=== PATIENT | female | born 1990 | race Caucasian/White ===

== ENCOUNTER 2016-05-22 21:01 | Emergency (ER) | payer OTHER ==
[2016-05-22 21:07] VITALS: BMI 23.0
[2016-05-22] MEDS ORDERED: NS 2,000 ML IV ONE (21:48)
[2016-05-22] MEDS ORDERED: SODIUM CHLORIDE 0.9% 10 ML FLUSH FLUSH PRN (21:48)
[2016-05-22] MEDS ORDERED: ONDANSETRON HCL 4 MG/2 ML VIAL IV ONE (21:48)
[2016-05-22] MEDS ORDERED: MORPHINE 4 MG/ML INJECTION IV ONE (21:48)
--- NOTE | 2016-05-22 21:50 | EDPRACDOC ---
- General Information Chief Complaint: Abdominal Pain Stated Complaint: BLOOD IN STOOL (CROHN'S DISEASE) Time Seen by Provider: 05/22/16 21:41 Information Source: Patient Mode Of Arrival: Car Home Medications: Home Medications Mesalamine [Lialda] 2.4 gm PO .QAM W/BREAKFAST 08/23/14 Ondansetron HCl [Zofran] 4 mg PO Q6H PRN #15 tab 08/23/14 Levofloxacin [Levaquin] 750 mg PO DAILY #7 tab 05/22/16 Prednisone [Deltasone, Orasone] 20 mg PO DAILY #20 tab 05/22/16 Promethazine [Phenergan] 25 mg PO Q4-6H PRN #15 tab 05/22/16 Allergies/Adverse Reactions: Allergies Allergy/AdvReac Type Severity Reaction Status Date / Time No Known Allergies Allergy Verified 05/22/16 21:07 - History of Present Illness Onset: TODAY HPI: Pt c/o diffuse abd pain, n/v/d x 2 days. C/o chills. Denies cough, congestion, cp, sob, changes in bladder, rash. Pt states hx Crohn disease but is currently not on medication. C/o bloody diarrhea about 10-20 episodes in 24 hours. Pain Location: Reports: Diffuse Pain Context: Reports: Spontaneous Pain Severity: Moderate Pain Quality: Reports: Aching, Cramping Pain Radiation: Reports: No Radiation Last Menstrual Period: MARCH : No Adult Abdominal History: Reports: Similar Pain (dx) (Crohn) Modifying Factors: improves with: Nothing Female Associated Signs & Symptoms: Reports: Nausea, Vomiting, Diarrhea, Chills Oral Intake: Decreased Urinary Output: Normal ED Past Medical History - History Reviewed Yes Nurses notes reviewed and agree except as marked - Social Medical History Smoking Status: Never smoker ETOH: None Substance Abuse: None EDM Review of Systems - Review of Systems Constitutional: No Symptoms Reported. negative: Fever, Chills, Weakness, Fatigue, Loss of Appetite Ears: No Symptoms Reported. negative: Pain, Hearing Loss, Drainage, Ear Pulling Throat: No Symptoms Reported. negative: Pain, Swelling Nose: No Symptoms Reported. negative: Congestion, Bleeding, Discharge, Injection, Swelling, Deformity, Ecchymosis, Tender, Abrasion, Laceration Mouth: No Symptoms Reported. negative: Pain, Drooling Respiratory: No Symptoms Reported. negative: Cough, Brassy Cough, Barky Cough, Shortness of Breath, Wheezing, Hemoptysis Cardiovascular: No Symptoms Reported. negative: Chest Pain, Palpitations, Syncope, Edema, Orthopnea, PND, Skin Mottling, Cyanosis Gastrointestinal: Diarrhea, Nausea, Pain, Vomiting Genitourinary: No Symptoms Reported. negative: Dysuria, Hematuria, Frequency, Discharge, Bleeding, Testicular Pain, Neurological: No Symptoms Reported. negative: Headache, Dizziness, Seizure, Numbness, Weakness, Speech Difficulty, Gait Difficulty Musculoskeletal: No Symptoms Reported. negative: Neck, Chestwall, Ribs, Back, Shoulder, Arm, Elbow, Forearm, Wrist, Hand, Pelvis, Hip, Femur, Knee, Leg, Ankle , Foot Integumentary: No Symptoms Reported. negative: Itching, Rash, Bruising, Wound Allergic/Immunologic: No Symptoms Reported. negative: Hives, Itching Hematologic: No Symptoms Reported. negative: Lymphadenopathy, Easy Bruising, Easy Bleeding Psychiatric: No Symptoms Reported. negative: Anxiety, Depression, Hallucinations, Insomnia, Suicidal - Physical Exam Constitutional: Alert Oriented to: Time, Person, Place Last recorded Vital Signs: Last Vital Signs Temp 99.1 F 05/22/16 23:36 Pulse 98 05/22/16 23:36 Resp 18 05/22/16 23:36 BP 87/46 L 05/22/16 23:36 Pulse Ox 96 05/22/16 23:36 Oxygen Pulse Oxygen Saturation 96 O2 Device Room Air Oxygen Flow Rate Fraction of Inspired Oxygen ( FIO2) - HEENT Head: Normal ( normocephalic) Eye Exam: Normal (PERRL, EOMI, Sclera white) Oropharynx: Normal (Pharynx:Moist without exudate,Gums-no swelling) Tympanic Membrane: Normal ENT EAC: Normal Nose: No Symptoms Reported (septum midline) Neck: Normal (FROM, trachea at midline) - Respiratory/Cardiovascular Respiratory: Normal - CTA (BBS clear to auscultation without adventitious sounds ) Cardiovascular: Tachycardia - GI Auscultation: Normal (NABS) Palpation: Normal (Soft,No rebound or guarding, non distended) Tenderness: Diffuse, Mild Rectal Exam: Heme positive stool, Hemorrhoids Stool: Loose - Musculoskeletal Back: Normal (Non-Tender) Extremities: Normal (Normal tone, Pulses 2+ No cyanosis or edema, FROM) - Integumentary Skin: Normal, Warm, Dry Lymphatics: Normal (no adenopathy) - Neurologic Memory Impaired: Normal Motor Function: Normal (Normal tone, Pulses 2+ No cyanosis or edema, FROM) Mood Description: Normal Perception: Normal - Differential Diagnosis Diverticulitis, Gastroenteritis, Inflammatory Bowel Dz, Pancreatitis, UTI - Results 05/22/16 22:14 05/22/16 22:14 WBC 12.5 xk/uL (3.8-10.8) H 05/22/16 22:14 RBC 4.65 xM/uL (4.20-5.40) 05/22/16 22:14 Hgb 10.6 g/dL (12.0-16.0) L 05/22/16 22:14 Hct 32.9 % (36-47) L 05/22/16 22:14 MCV 71 fL (81-99) L 05/22/16 22:14 MCH 22.8 pg (27-32) L 05/22/16 22:14 MCHC 32.2 g/dl (33-36) L 05/22/16 22:14 RDW 17.2 % (11.5-14.5) H 05/22/16 22:14 Plt Count 292 xk/uL (130-400) 05/22/16 22:14 MPV 7.4 fL (7.4-10.4) 05/22/16 22:14 Neut % (Auto) 89.4 % (45-76) H 05/22/16 22:14 Lymph % (Auto) 4.9 % (17-44) L 05/22/16 22:14 [place] % (Auto) 5.4 % (3-10) 05/22/16 22:14 Eos % (Auto) 0.1 % (0-5) 05/22/16 22:14 Baso % (Auto) 0.2 % (0-2) 05/22/16 22:14 Absolute Neuts (auto) 11.13 xk/uL (1.7-8.2) H 05/22/16 22:14 Absolute Lymphs (auto) 0.50 xk/uL (0.65-4.75) L 05/22/16 22:14 Platelet Estimate Norm (NORMAL) 05/22/16 22:14 RBC Morphology 1+ hypo 1+ micro 1+ poik 1+ polychrom 05/22/16 22:14 RBC Morphology 1+ hypo 1+ micro 1+ poik 1+ polychrom 05/22/16 22:14 RBC Morphology 1+ hypo 1+ micro 1+ poik 1+ polychrom 05/22/16 22:14 RBC Morphology 1+ hypo 1+ micro 1+ poik 1+ polychrom 05/22/16 22:14 Sodium 136 mEq/L (137-146) L 05/22/16 22:14 Potassium 3.3 mEq/L (3.5-5.1) L 05/22/16 22:14 Chloride 100 mEq/L (98-107) 05/22/16 22:14 Carbon Dioxide 25 mMOL/L (22-33) 05/22/16 22:14 Anion Gap 14 mEq/L (8-16) 05/22/16 22:14 BUN 7 MG/DL (7-17) 05/22/16 22:14 Creatinine 0.70 MG/DL (0.52-1.04) 05/22/16 22:14 Estimated GFR (MDRD) > 60 mL/min (>=60) 05/22/16 22:14 Glucose 94 MG/DL (70-99) 05/22/16 22:14 Calculated Osmolality 260 MOs/Kg (270-290) L 05/22/16 22:14 Calcium 9.0 MG/DL (8.4-10.2) 05/22/16 22:14 Corrected Calcium 9.3 MG/DL (8.4-10.2) 05/22/16 22:14 Total Bilirubin 0.4 MG/DL (0.2-1.3) 05/22/16 22:14 AST 27 IU/L (14-36) 05/22/16 22:14 ALT 34 IU/L (9-52) 05/22/16 22:14 Alkaline Phosphatase 83 IU/L (38-126) 05/22/16 22:14 Total Protein 7.0 G/DL (6.3-8.2) 05/22/16 22:14 Albumin 3.7 G/DL (3.5-5.0) 05/22/16 22:14 Lipase 118 U/L (23-300) 05/22/16 22:14 Urine Color Yellow 05/22/16 22:05 Urine Clarity Clear 05/22/16 22:05 Urine pH 6.0 (5.0-8.0) 05/22/16 22:05 Ur Specific [place] 1.015 (1.003-1.035) 05/22/16 22:05 Urine Protein Neg (NEG/TRACE) 05/22/16 22:05 Urine Glucose (UA) Neg (NEGATIVE) 05/22/16 22:05 Urine Ketones Neg (NEGATIVE) 05/22/16 22:05 Urine Occult Blood Neg (NEG/TRACE) 05/22/16 22:05 Urine Nitrite Neg (NEGATIVE) 05/22/16 22:05 Urine Bilirubin Neg (NEGATIVE) 05/22/16 22:05 Urine Urobilinogen <2.0 MG/DL (0-1) 05/22/16 22:05 Ur Leukocyte Esterase Trace (NEGATIVE) H 05/22/16 22:05 Urine RBC 0-2 (0-5) 05/22/16 22:05 Urine WBC 0-2 (0-5) 05/22/16 22:05 Ur Epithelial Cells 2+ 05/22/16 22:05 Urine Mucus Occ (NEG/OCC) 05/22/16 22:05 Urine Test Neg (NEGATIVE) 05/22/16 22:05 Lab Results 05/22/16 05/22/16 05/22/16 22:14 22:14 22:14 WBC 12.5 H RBC 4.65 Hgb 10.6 L Hct 32.9 L MCV 71 L MCH 22.8 L MCHC 32.2 L RDW 17.2 H Plt Count 292 MPV 7.4 Neut % (Auto) 89.4 H Lymph % (Auto) 4.9 L [place] % (Auto) 5.4 Eos % (Auto) 0.1 Baso % (Auto) 0.2 Absolute Neuts (auto) 11.13 H Absolute Lymphs (auto) 0.50 L Platelet Estimate Norm RBC Morphology 1+ polychrom Sodium 136 L Potassium 3.3 L Chloride 100 Carbon Dioxide 25 Anion Gap 14 BUN 7 Creatinine 0.70 Estimated GFR (MDRD) > 60 Glucose 94 Calculated Osmolality 260 L Calcium 9.0 Corrected Calcium 9.3 Total Bilirubin 0.4 AST 27 ALT 34 Alkaline Phosphatase 83 Total Protein 7.0 Albumin 3.7 Lipase 118 Urine Color Urine Clarity Urine pH Ur Specific [place] Urine Protein Urine Glucose (UA) Urine Ketones Urine Occult Blood Urine Nitrite Urine Bilirubin Urine Urobilinogen Ur Leukocyte Esterase Urine RBC Urine WBC Ur Epithelial Cells Urine Mucus Urine Test 05/22/16 05/22/16 22:05 22:05 WBC RBC Hgb Hct MCV MCH MCHC RDW Plt Count MPV Neut % (Auto) Lymph % (Auto) [place] % (Auto) Eos % (Auto) Baso % (Auto) Absolute Neuts (auto) Absolute Lymphs (auto) Platelet Estimate RBC Morphology Sodium Potassium Chloride Carbon Dioxide Anion Gap BUN Creatinine Estimated GFR (MDRD) Glucose Calculated Osmolality Calcium Corrected Calcium Total Bilirubin AST ALT Alkaline Phosphatase Total Protein Albumin Lipase Urine Color Yellow Urine Clarity Clear Urine pH 6.0 Ur Specific [place] 1.015 Urine Protein Neg Urine Glucose (UA) Neg Urine Ketones Neg Urine Occult Blood Neg Urine Nitrite Neg Urine Bilirubin Neg Urine Urobilinogen <2.0 Ur Leukocyte Esterase Trace H Urine RBC 0-2 Urine WBC 0-2 Ur Epithelial Cells 2+ Urine Mucus Occ Urine Test Neg - Departure Disposition: Home Condition: Good Final Diagnosis: Crohn's colitis Qualifiers: Digestive disease complication type: without complication Qualified Code(s): K50.10 - Crohn's disease of large intestine without complications Instructions: Crohn Disease (ED), Colitis (ED) Education/Counseling Given To: Patient Education/Counseling Given Regarding: Diagnosis, Treatment, Follow Up Referrals: None,No Provider [Primary Care Provider] - One Week Silvano Porter MD [Staff Physician] - One Week Isaac Dao MD [Staff Physician] - One Week Prescriptions: Levofloxacin [Levaquin] 750 mg PO DAILY #7 tab Prednisone [Deltasone, Orasone] 20 mg PO DAILY #20 tab Promethazine [Phenergan] 25 mg PO Q4-6H PRN #15 tab PRN Reason: Nausea/Vomiting Additional Instructions: Follow up with personal GI specialist in 1-2 days. Return for worse or different symptoms.
[2016-05-22] MEDS ORDERED: ACETAMINOPHEN 325 MG/TAB TABLET PO ONE (21:52)
[2016-05-22 22:13] LABS: LEUKOCYTES/URINE TRACE (NEGATIVE); NITRITE/URINE NEG (NEGATIVE); RBC/URINE 0-2 (0-5); URINE OCCULT BLOOD NEG (NEG/TRACE); WBC/URINE 0-2 (0-5)
[2016-05-22 22:26] LABS: AUTOMATED BASOPHIL 0.2 % (0-2); AUTOMATED EOSINOPHIL 0.1 % (0-5); AUTOMATED LYMPH 4.9 % (17-44); AUTOMATED MONOCYTE 5.4 % (3-10); AUTOMATED NEUTROPHIL 89.4 % (45-76); MPV 7.4 fL (7.4-10.4)
[2016-05-22 22:38] LABS: BLOOD UREA NITROGEN 7 MG/DL (7-17); CALC CORRECTED 9.3 MG/DL (8.4-10.2); CALCULATED OSMOLALITY 260 MOs/Kg (270-290); CHLORIDE 100 mEq/L (98-107); GLUCOSE 94 MG/DL (70-99); SODIUM LEVEL 136 mEq/L (137-146)
[2016-05-22] MEDS ORDERED: Pharmacy Review for Metformin - IV Contrast Given SCH (23:00)
--- NOTE | 2016-05-22 23:26 | DIRPT ---
CLINICAL DATA: Acute onset of generalized abdominal pain and blood in stool. Current history of Crohn's disease. Leukocytosis. Initial encounter. EXAM: CT ABDOMEN AND PELVIS WITH CONTRAST TECHNIQUE: Multidetector CT imaging of the abdomen and pelvis was performed using the standard protocol following bolus administration of intravenous contrast. CONTRAST: 100 mL of Isovue 370 IV contrast COMPARISON: CT of the abdomen and pelvis from 07/11/2008 FINDINGS: The visualized lung bases are clear. The liver and spleen are unremarkable in appearance. The gallbladder is within normal limits. The pancreas and adrenal glands are unremarkable. The kidneys are unremarkable in appearance. There is no evidence of hydronephrosis. No renal or ureteral stones are seen. No perinephric stranding is appreciated. No free fluid is identified. The proximal small bowel is unremarkable in appearance. The stomach is within normal limits. No acute vascular abnormalities are seen. There is mild diffuse wall thickening involving the terminal ileum and the entirety of the colon, likely reflecting acute exacerbation of the patient's Crohn's disease. Associated increased prominence of the vasculature is noted, with scattered surrounding inflammatory nodes. The appendix is not definitely seen; there is no evidence for appendicitis. The bladder is mildly distended and grossly unremarkable. The uterus is grossly unremarkable in appearance. The ovaries are grossly symmetric, aside from a small 2.8 cm left ovarian follicle. No inguinal lymphadenopathy is seen. No acute osseous abnormalities are identified. IMPRESSION: Mild diffuse wall thickening involving the terminal ileum and the entirety of the colon, likely reflecting acute exacerbation of the patient's Crohn's disease. Associated hyperemia, and surrounding small inflammatory nodes. Electronically Signed By: Arie Wallace M.D. On: 05/22/2016 23:23
[2016-05-22 23:37] VITALS: TEMP 99.1
[2016-05-22] MEDS ORDERED: METHYLPREDNISOLONE 125 MG/2 ML VIAL IV ONE (23:48)
[2016-05-22] MEDS ORDERED: NS 1,000 ML IV ONE (23:49)
[2016-05-22] MEDS ORDERED: Levofloxacin 750 mg/150 ml D5W 750 MG/150 ML RTU IV ONE (23:49)
[2016-05-23 03:27] VITALS: BP 89/52; PULSE 90
== END 2016-05-23 02:30 | disposition home or self-care (01) ==
LOC: ED 21:01
DX: K50.10 Crohn's disease of large intestine without complications (principal)
CPT/HCPCS: 36415; 74177; 80053; 81001; 81025; 82270; 83690; 85025; 96361; 96365; 96375; 99284; A9698; J1956; J2270; J2405; J2930; J3490